=== PATIENT | female | born 1990 | race African-American/Black ===

== ENCOUNTER 2023-03-12 17:04 | Inpatient (IN) | payer MEDICAID ==
[~2023-03-12] VITALS: Ht 149.9 cm; Wt 88.7 kg
[2023-03-12] MEDS ORDERED: FLUO10CA24 PO (17:17)
[2023-03-12] MEDS ORDERED: HYDR-4527 PO (17:17)
[2023-03-12] MEDS ORDERED: ALBU18HF12 IH (17:17)
[2023-03-12 18:16] LABS: COVID AG,FIA SOURCE NASAL SWAB
[2023-03-12 18:38] LABS: SARS-COV2 (COVID) ANTIGEN,FIA Negative (Negative)
[2023-03-12 22:16] LABS: ANION GAP 10 mmol/L (8-16); CALCIUM, TOTAL 8.8 mg/dL (8.8-10.5); CARBON DIOXIDE 27 mmol/L (22-29); CHLORIDE 104 mmol/L (98-107); CREATININE 0.72 mg/dL (0.60-1.30); GLOMERULAR FILTR. RATE CALC > 60 mL/min (>60); GLUCOSE,RANDOM 88 mg/dL (70-110); POTASSIUM 3.4 mmol/L (3.5-5.1); SODIUM SERUM 141 mmol/L (136-145); UREA NITROGEN, BLOOD 3 mg/dL (7-18)
[2023-03-12 22:21] LABS: ALCOHOL, BLOOD (SERUM) 66 mg/dL (0-10)
[2023-03-12 22:27] LABS: ALANINE AMINOTRANSFERASE 24 U/L (12-78); ALBUMIN 2.9 g/dL (3.4-5.0); ALKALINE PHOSPHATASE 62 U/L (46-116); ASPARTATE AMINOTRANSFERASE 21 U/L (15-37); BILIRUBIN,TOTAL 0.5 mg/dL (0.1-1.0); HCG,QUANTITATIVE < 1 mIU/mL (0-6); TOTAL PROTEIN, SERUM 7.2 g/dL (6.4-8.2)
[2023-03-12 22:29] LABS: ACETAMINOPHEN < 2 mcg/mL (10-30)
[2023-03-12 23:13] LABS: BASOPHILS % (AUTO) 0.9 % (0.0-2.0); EOSINOPHILS % (AUTO) 3.1 % (1.0-6.0); HEMATOCRIT 41.4 % (36-46); HEMOGLOBIN 13.4 g/dL (12.0-16.0); LYMPHOCYTES # (AUTO) 3.3 K/uL (1.0-4.8); LYMPHOCYTES % (AUTO) 35.8 % (22.0-44.0); MEAN CORPUSCULAR HEMOGLOBIN 28.5 pg (26.0-34.0); MEAN CORPUSCULAR HGB CONC 32.3 G/dL (31.0-37.0); MEAN CORPUSCULAR VOLUME 88 fL (80-100); MONOCYTES # (AUTO) 0.8 K/uL (0.1-1.0); MONOCYTES % (AUTO) 9.3 % (2.0-9.0); NEUTROPHILS # (AUTO) 4.6 K/uL (1.8-7.7); NEUTROPHILS % (AUTO) 50.9 % (40.0-70.0); PLATELET COUNT (AUTO) 310 K/uL (150-450); RED CELL DISTRIBUTION WIDTH 12.7 % (11.5-14.5); WHITE BLOOD COUNT (AUTO) 9.1 K/uL (4.5-11.0)
[2023-03-13 01:07] VITALS: BP 130/65; PULSE 91; RESP 18; TEMP 97.7; O2SAT 99
[2023-03-13] MEDS ORDERED: INFLUENZA VIRUS VACCINE QVS 2023-24 (6MO+)/PF 60 MCG/0.5 ML SYRINGE IM. ONE (02:30)
[2023-03-13 08:27] VITALS: BP 108/62; PULSE 62; RESP 17; TEMP 97.9; O2SAT 98
[2023-03-13] MEDS ORDERED: POTASSIUM CHLORIDE 20 MEQ ER TABLET PO ONE (10:30)
[2023-03-13] MEDS ORDERED: SUMAtriptan SUCCINATE 25 MG TABLET PO PRN (13:00)
[2023-03-13] MEDS ORDERED: NICOTINE 14 MG/24 HOUR PATCH TD PRN (14:00)
[2023-03-13] MEDS ORDERED: LOPERAMIDE HCL 2 MG CAPSULE PO PRN (14:00)
[2023-03-13] MEDS ORDERED: ALBUTEROL SULFATE HFA 90 MCG/PUFF 8 GM INHALER IH PRN (14:00)
[2023-03-13] MEDS ORDERED: PETROLATUM,WHITE 28 GM JELLY TP PRN (14:00)
[2023-03-13] MEDS ORDERED: GuaiFENesin/D-METHORPHAN [SUGAR-FREE] 200-20MG/10 ML SYRUP UDCUP PO PRN (14:00)
[2023-03-13] MEDS ORDERED: CloNIDine HCL 0.1 MG TABLET PO PRN (14:00)
[2023-03-13] MEDS ORDERED: ONDANSETRON HCL 4 MG TABLET PO PRN (14:00)
[2023-03-13] MEDS ORDERED: MAG HYDROX/ALUMINUM HYD/SIMETH ES 30 ML SUSPENSION UDCUP PO PRN (14:00)
[2023-03-13] MEDS ORDERED: ACETAMINOPHEN 325 MG TABLET PO PRN (14:00)
[2023-03-13] MEDS: FLUoxetine HCL 20 MG CAPSULE PO SCH (14:08)
[2023-03-13 16:15] VITALS: RESP 18; O2SAT 98
[2023-03-13] MEDS: IBUPROFEN 400 MG TABLET PO PRN (16:15)
[2023-03-13 17:15] VITALS: RESP 18; O2SAT 98
[2023-03-13 20:43] VITALS: BP 103/65; PULSE 89; RESP 18; TEMP 98.3; O2SAT 96
[2023-03-14 07:08] VITALS: RESP 18
[2023-03-14] MEDS: IBUPROFEN 400 MG TABLET PO PRN ×2 (07:11→21:06)
[2023-03-14 08:30] VITALS: BP 100/65; PULSE 72; RESP 18; TEMP 98; O2SAT 99
[2023-03-14] MEDS: FLUoxetine HCL 20 MG CAPSULE PO SCH (08:46)
[2023-03-14 10:47] LABS: CHOL/HDL RATIO 3.4 (3.9-5.7); POTASSIUM 4.1 mmol/L (3.5-5.1); THYROID STIMULATING HORMONE 0.68 uIU/mL (0.36-3.74)
[2023-03-14] MEDS: DOCUSATE SODIUM 100 MG CAPSULE PO PRN ×2 (11:25→11:28)
[2023-03-14 20:33] VITALS: BP 139/87; PULSE 90; RESP 17; TEMP 98; O2SAT 96
[2023-03-14 21:00] VITALS: RESP 18
[2023-03-14] MEDS: ZOLPIDEM TARTRATE 10 MG TABLET PO PRN (21:06)
[2023-03-14 22:00] VITALS: RESP 18
[2023-03-15] MEDS: IBUPROFEN 400 MG TABLET PO PRN (06:56)
[2023-03-15 06:57] VITALS: RESP 18
[2023-03-15 08:09] LABS: APPEARANCE,URINE HAZY (CLEAR); BILIRUBIN,URINE NEGATIVE (NEGATIVE); COLOR,URINE YELLOW (YELLOW); GLUCOSE, URINE (UA) NEGATIVE (NEGATIVE); KETONES,URINE NEGATIVE (NEGATIVE); LEUKOCYTE ESTERASE ,URINE NEGATIVE (NEGATIVE); NITRATE,URINE POSITIVE (NEGATIVE); OCCULT BLOOD,URINE NEGATIVE (NEGATIVE); PH,URINE 6.5 (5.0-8.0); PH,URINE DRUG SCREEN 6.5 (5.0-8.0); PROTEIN,URINE NEGATIVE (NEGATIVE); SPECIFIC GRAVITIY, URINE 1.022 (1.003-1.030); UROBILINOGEN,URINE <=1.0 mg/dL (<=1.0)
[2023-03-15 08:15] LABS: AMPHET/METH SCREEN,URINE NEGATIVE (NEGATIVE); BARBITURATE SCREEN, URINE NEGATIVE (NEGATIVE); BENZODIAZEPINES SCREEN,URINE NEGATIVE (NEGATIVE); CANNABINOID SCREEN,URINE NEGATIVE (NEGATIVE); COCAINE SCREEN,URINE POSITIVE (NEGATIVE); METHADONE SCREEN, URINE NEGATIVE (NEGATIVE); OPIATE SCREEN,URINE NEGATIVE (NEGATIVE); PHENCYCLIDINE SCREEN,URINE NEGATIVE (NEGATIVE)
[2023-03-15 08:16] LABS: ALCOHOL, URINE DRUG SCREEN NEGATIVE (NEGATIVE)
[2023-03-15 08:18] VITALS: BP 110/65; PULSE 79; RESP 18; TEMP 98; O2SAT 98
[2023-03-15 08:21] LABS: BACTERIA,URINE Moderate /HPF (None Seen); RBC,URINE None Seen /HPF (0-2); SQUAMOUS EPITHELIAL CELL,UR Few /LPF (None Seen); WBC,URINE 0-2 /HPF (0-5)
[2023-03-15] MEDS: FLUoxetine HCL 20 MG CAPSULE PO SCH (09:02)
[2023-03-15] MEDS: MAGNESIUM HYDROXIDE SUSPENSION 30 ML UDCUP PO PRN (09:07)
[2023-03-15] MEDS ORDERED: BENZOCAINE 10% 7 GM GEL TP PRN (11:30)
[2023-03-15] MEDS ORDERED: BISACODYL 5 MG EC TABLET PO PRN (11:30)
[2023-03-15] MEDS: OMEPRAZOLE 20 MG CAPSULE PO SCH (12:12)
[2023-03-15 12:24] VITALS: RESP 18; O2SAT 98
[2023-03-15] MEDS: TraMADol HCL 50 MG TABLET PO PRN ×2 (12:24→21:10)
[2023-03-15 13:24] VITALS: RESP 18; O2SAT 98
[2023-03-15] MEDS: LORazepam 2 MG TABLET PO PRN ×2 (14:30→21:10)
[2023-03-15 20:05] VITALS: BP 103/62; PULSE 60; RESP 18; TEMP 97.2; O2SAT 96
[2023-03-15] MEDS: ZOLPIDEM TARTRATE 10 MG TABLET PO PRN (21:50)
[2023-03-16] MEDS: HALOPERIDOL 5 MG TABLET PO PRN (00:26)
[2023-03-16] MEDS: IBUPROFEN 400 MG TABLET PO PRN (00:27)
[2023-03-16 08:42] VITALS: RESP 17
[2023-03-16] MEDS: FLUoxetine HCL 20 MG CAPSULE PO SCH (09:39)
[2023-03-16] MEDS: OMEPRAZOLE 20 MG CAPSULE PO SCH (09:40)
[2023-03-16 13:03] VITALS: BP 110/73; PULSE 94; RESP 18; TEMP 97.3; O2SAT 97
[2023-03-16] MEDS: LORazepam 2 MG TABLET PO PRN (13:14)
[2023-03-16] MEDS: DOCUSATE SODIUM 100 MG CAPSULE PO PRN (13:28)
[2023-03-16] MEDS: AMOX TR/POT CLAV 500 MG/125 MG TABLET PO SCH (17:27)
[2023-03-16 20:07] VITALS: BP 106/64; PULSE 96; RESP 18; TEMP 98; O2SAT 97
[2023-03-17 08:24] VITALS: BP 105/64; PULSE 65; RESP 18; TEMP 98; O2SAT 99
[2023-03-17] MEDS: FLUoxetine HCL 20 MG CAPSULE PO SCH (08:55)
[2023-03-17] MEDS: OMEPRAZOLE 20 MG CAPSULE PO SCH (08:55)
[2023-03-17] MEDS: AMOX TR/POT CLAV 500 MG/125 MG TABLET PO SCH ×2 (09:11→16:57)
[2023-03-17] MEDS: MAGNESIUM HYDROXIDE SUSPENSION 30 ML UDCUP PO PRN (10:57)
[2023-03-17] MEDS: LORazepam 2 MG TABLET PO PRN ×2 (11:17→17:17)
[2023-03-17 17:00] VITALS: RESP 18
[2023-03-17] MEDS: IBUPROFEN 400 MG TABLET PO PRN (17:00)
[2023-03-17 18:00] VITALS: RESP 17
[2023-03-17 20:04] VITALS: BP 100/60; PULSE 61; RESP 18; TEMP 97.6; O2SAT 96
[2023-03-18 08:30] VITALS: BP 118/59; PULSE 65; RESP 18; TEMP 97.5; O2SAT 97
[2023-03-18] MEDS: OMEPRAZOLE 20 MG CAPSULE PO SCH (08:40)
[2023-03-18] MEDS: AMOX TR/POT CLAV 500 MG/125 MG TABLET PO SCH ×2 (08:40→15:59)
[2023-03-18] MEDS: FLUoxetine HCL 20 MG CAPSULE PO SCH (09:25)
[2023-03-18] MEDS: DOCUSATE SODIUM 100 MG CAPSULE PO PRN (10:01)
[2023-03-18] MEDS: LORazepam 2 MG TABLET PO PRN (10:01)
[2023-03-18] MEDS: MAGNESIUM HYDROXIDE SUSPENSION 30 ML UDCUP PO PRN (10:01)
[2023-03-18] MEDS: TraMADol HCL 50 MG TABLET PO PRN (15:42)
[2023-03-18 20:40] VITALS: BP 95/66; PULSE 70; RESP 17; TEMP 97.3; O2SAT 97
[2023-03-19 06:17] VITALS: BP 103/80; PULSE 77; RESP 17; TEMP 97.5; O2SAT 96
[2023-03-19] MEDS: LORazepam 2 MG TABLET PO PRN (06:26)
[2023-03-19] MEDS: IBUPROFEN 400 MG TABLET PO PRN (06:26)
[2023-03-19 09:23] VITALS: BP 98/56; PULSE 62; RESP 17; TEMP 97.7; O2SAT 98
[2023-03-19] MEDS: OMEPRAZOLE 20 MG CAPSULE PO SCH (09:57)
[2023-03-19] MEDS: AMOX TR/POT CLAV 500 MG/125 MG TABLET PO SCH ×2 (09:57→16:27)
[2023-03-19] MEDS: BusPIRone HCL 5 MG TABLET PO SCH ×3 (09:58→21:30)
[2023-03-19] MEDS: FLUoxetine HCL 20 MG CAPSULE PO SCH (09:58)
[2023-03-19] MEDS: MAGNESIUM HYDROXIDE SUSPENSION 30 ML UDCUP PO PRN (11:12)
[2023-03-19] MEDS: HALOPERIDOL 5 MG TABLET PO PRN (13:43)
[2023-03-19 18:35] VITALS: BP 6/63; PULSE 71; RESP 17; TEMP 97.9; O2SAT 98
[2023-03-19] MEDS: TraMADol HCL 50 MG TABLET PO PRN (19:41)
[2023-03-19 20:13] VITALS: BP 99/54; PULSE 88; RESP 18; TEMP 97.6; O2SAT 99
[2023-03-20 01:10] VITALS: BP 104/65; PULSE 64; RESP 18; TEMP 97.6; O2SAT 97
[2023-03-20 08:07] VITALS: BP 105/68; PULSE 75; RESP 17; TEMP 97.6; O2SAT 96
[2023-03-20] MEDS: OMEPRAZOLE 20 MG CAPSULE PO SCH (08:24)
[2023-03-20] MEDS: FLUoxetine HCL 20 MG CAPSULE PO SCH (08:24)
[2023-03-20] MEDS: BusPIRone HCL 5 MG TABLET PO SCH ×3 (08:26→20:46)
[2023-03-20] MEDS: AMOX TR/POT CLAV 500 MG/125 MG TABLET PO SCH ×2 (08:48→16:27)
[2023-03-20] MEDS ORDERED: FOLIC ACID 1 MG TABLET PO SCH (10:45)
[2023-03-20 11:56] VITALS: BP 114/63; PULSE 78
[2023-03-20] MEDS: LORazepam 2 MG TABLET PO PRN (12:04)
[2023-03-20 22:14] VITALS: BP 103/53; PULSE 58; RESP 18; TEMP 97.2; O2SAT 97
[2023-03-21 08:07] VITALS: BP 109/75; PULSE 62; RESP 16; TEMP 97.4; O2SAT 97
[2023-03-21] MEDS: OMEPRAZOLE 20 MG CAPSULE PO SCH (08:09)
[2023-03-21] MEDS: AMOX TR/POT CLAV 500 MG/125 MG TABLET PO SCH (08:09)
[2023-03-21] MEDS: BusPIRone HCL 5 MG TABLET PO SCH (08:10)
[2023-03-21] MEDS: FLUoxetine HCL 20 MG CAPSULE PO SCH (08:10)
[2023-03-21] MEDS: LORazepam 2 MG TABLET PO PRN (08:58)
[2023-03-21] MEDS ORDERED: THIAMINE 100 MG TABLET PO SCH (09:00)
[2023-03-21] MEDS ORDERED: FLUO20CA36 PO ×2 (10:33→11:59)
[2023-03-21] MEDS ORDERED: BUSP5TAB20 PO ×3 (10:33→11:59)
[2023-03-21] MEDS ORDERED: AMOX1TAB15 PO ×2 (11:24→16:51)
== END 2023-03-21 13:17 | disposition home or self-care (01) | DRG 751 ==
LOC: EMS 17:05 → B2S 22:30 → UNDOADMIN 03-13 00:51 → B2S 03-13 00:51
PROVIDERS: ADMIT Psychiatry & Neurology Psychiatry; ATTEND Psychiatry & Neurology Psychiatry
DX: F33.2 Major depressive disorder, recurrent severe without psychotic features (principal); R45.851 Suicidal ideations; E66.9 Obesity, unspecified; E87.6 Hypokalemia; T43.592A Poisoning by other antipsychotics and neuroleptics, intentional self-harm, initial encounter; T43.222A Poisoning by selective serotonin reuptake inhibitors, intentional self-harm, initial encounter; F41.9 Anxiety disorder, unspecified; J45.909 Unspecified asthma, uncomplicated; G43.909 Migraine, unspecified, not intractable, without status migrainosus; Z20.822 Contact with and (suspected) exposure to COVID-19; Z91.51 Personal history of suicidal behavior; Z68.39 Body mass index [BMI] 39.0-39.9, adult; Z88.1 Allergy status to other antibiotic agents; Z88.8 Allergy status to other drugs, medicaments and biological substances; Z79.899 Other long term (current) drug therapy; Y92.89 Other specified places as the place of occurrence of the external cause; Z59.00 Homelessness unspecified
CPT/HCPCS: 80053; 80061; 80307; 81001; 83036; 84132; 84443; 84702; 85025; 87086; 87186; 93005; 99285; G0480; G0481